=== PATIENT | female | born 1995 | race African-American/Black ===

== ENCOUNTER 2021-03-09 08:27 | Emergency (ER) | payer MEDICAID ==
[~2021-03-09] VITALS: Ht 149.9 cm; Wt 92.0 kg
[2021-03-09] MEDS ORDERED: ACETAMINOPHEN 325MG TABLET PO ONE (09:00)
[2021-03-09] MEDS ORDERED: IBUPROFEN 600MG TABLET PO ONE (09:00)
[2021-03-09] MEDS ORDERED: IBUP-2029 MT (10:44)
[2021-03-09] MEDS ORDERED: KETOROLAC 60MG/2ML VIAL IM ONE (11:00)
[2021-03-09 11:08] VITALS: BP 132/89
== END 2021-03-09 11:32 | disposition home or self-care (01) ==
LOC: ER 08:27
DX: S16.1XXA Strain of muscle, fascia and tendon at neck level, initial encounter (principal); M25.562 Pain in left knee; V49.40XA Driver injured in collision with unspecified motor vehicles in traffic accident, initial encounter; Y93.89 Activity, other specified; Y92.410 Unspecified street and highway as the place of occurrence of the external cause
CPT/HCPCS: 71045; 73030; 73562; 74018; 81025; 96372; 99284; J1885; Z7610

== ENCOUNTER 2024-08-25 15:02 | Emergency (ER) | payer MEDICAID ==
[~2024-08-25] VITALS: Ht 147.3 cm; Wt 90.7 kg
[~2024-08-25 15:02] MED LIST: IBUP-2029 MT
[2024-08-25 15:35] VITALS: O2SAT 99
[2024-08-25] MEDS ORDERED: BENZ1LOZ73 MT (15:50)
[2024-08-25] MEDS ORDERED: IBUP-2029 MT (15:50)
[2024-08-25] MEDS: DEXAMETHASONE 10 MG/ML VIAL PO ONE (16:47)
[2024-08-25 16:53] VITALS: BP 114/78; PULSE 104; RESP 18; TEMP 36.72516; O2SAT 100
== END 2024-08-25 16:54 | disposition home or self-care (01) ==
LOC: ER 15:02
DX: J02.8 Acute pharyngitis due to other specified organisms (principal)
CPT/HCPCS: 99283; J1100; Z7610